=== PATIENT | female | born 1950 | race Caucasian/White ===

== ENCOUNTER → 2022-02-28 05:10 | Emergency (ER) | payer MEDICARE, OTHER ==
[~2022-02-28] VITALS: Ht 170.2 cm; Wt 78.8 kg
[~2022-02-28 05:10] MED LIST: LIDOcaine 1% W/epiNEPHrine 1:100,000 20ml vial SQ ONE; TETanus/Pertussis (Acell)/Diphther VAC/PF (Tdap-Adult) 0.5ml syringe IMVAC ONE; bacitracin 15gm ointment TP ONE
[2022-02-28 05:55] VITALS: BP 138/63
--- NOTE | 2022-02-28 06:20 | NUR ---
Dr. Lamar and spouse at bedside.
== END | disposition home or self-care (01) ==
LOC: ER 05:10
DX: S01.81XA Laceration without foreign body of other part of head, initial encounter (principal); W18.39XA Other fall on same level, initial encounter; Y93.89 Activity, other specified; Y92.89 Other specified places as the place of occurrence of the external cause; Y99.8 Other external cause status
CPT/HCPCS: 12014; 90471; 90715; 99284; J7030

== ENCOUNTER 2023-11-08 14:57 | Emergency (ER) | payer MEDICARE, MEDICAID ==
[~2023-11-08] VITALS: Ht 170.2 cm; Wt 94.6 kg
[2023-11-08 15:00] VITALS: BP 145/110; PULSE 78; RESP 16; TEMP 98.6; O2SAT 94
[2023-11-08] MEDS ORDERED: BENZ-38 PO (15:56)
[2023-11-08] MEDS ORDERED: CODE10LI2 PO (15:56)
== END 2023-11-08 16:27 | disposition home or self-care (01) ==
LOC: ER 14:57
DX: R05.9 Cough, unspecified (principal); F41.9 Anxiety disorder, unspecified; F32.9 Major depressive disorder, single episode, unspecified; Z88.8 Allergy status to other drugs, medicaments and biological substances
CPT/HCPCS: 71046; 99283